=== PATIENT | female | born 1995 | race Caucasian/White ===

== ENCOUNTER → 2017-07-28 13:26 | Outpatient (CLI) | payer SELFPAY ==
[2017-07-28 13:43] LABS: Hematocrit 35.4 % (37-47); Hemoglobin 11.8 g/dl (12.0-15.0); Mean Corp Hgb Conc 33.3 g/gl (32-36); Mean Corpuscular Hgb 29.6 pg (27.0-32.0); Mean Corpuscular Volume 88.9 fL (81-99); Mean Platelet Vol. 8.9 fl (6.2-12.0); Platelet Count 257 K/mm3 (150-450); RBC Distribution Width CV 14.1 % (11.6-14.6); RBC Distribution Width SD 46.1 fl (35.1-43.9); Red Blood Count 3.98 M/mm3 (4.2-5.4); Scan Indicated on CBC? Y/N NO; White Blood Count 5.8 K/mm3 (4.4-11.0)
[2017-07-28 13:44] LABS: Glucose Challenge Gest 1H 50g 72 mg/dL (70-140)
== END ==
PROVIDERS: Visit Provider Obstetrics & Gynecology
DX: Z34.83 Encounter for supervision of other normal pregnancy, third trimester (principal)
CPT/HCPCS: 82950; 85027; 86850

== ENCOUNTER → 2017-09-22 14:37 | Outpatient (CLI) | payer SELFPAY ==
[2017-09-22 17:12] LABS: Group B Strep DNA By PCR Negative (Negative); Internal Control PASS; Probe Check PASS; Specimen Processing Control PASS
== END ==
PROVIDERS: Visit Provider Obstetrics & Gynecology
DX: Z36.85 Encounter for antenatal screening for Streptococcus B (principal)
CPT/HCPCS: 87081; 87653

== ENCOUNTER 2017-10-22 07:00 | Inpatient (IN) | payer SELFPAY ==
[2017-10-22] MEDS: Lactated Ringers 1,000 ML 50 ML IV ×2 (07:30→10:14)
[2017-10-22 07:38] VITALS: BMI 31.4
[2017-10-22 07:45] LABS: Hematocrit 36.3 % (37-47); Hemoglobin 12.3 g/dl (12.0-15.0); Mean Corp Hgb Conc 33.9 g/gl (32-36); Mean Corpuscular Hgb 29.2 pg (27.0-32.0); Mean Corpuscular Volume 86.2 fL (81-99); Mean Platelet Vol. 8.9 fl (6.2-12.0); Platelet Count 214 K/mm3 (150-450); RBC Distribution Width CV 14.8 % (11.6-14.6); RBC Distribution Width SD 46.2 fl (35.1-43.9); Red Blood Count 4.21 M/mm3 (4.2-5.4); White Blood Count 5.6 K/mm3 (4.4-11.0)
[2017-10-22 07:46] LABS: Scan Indicated on CBC? Y/N NO
[2017-10-22] MEDS: Oxytocin 30 units/NS 500 ml 30 UNITS/500 ML IV.SOLN IV (08:00)
[2017-10-22] MEDS: Ondansetron 4 MG/2 ML Vial IV (09:54)
[2017-10-22] MEDS: fentaNYL-bupivacaine (epidural) 100 ML BAG EPIDURAL (10:05)
--- NOTE | 2017-10-22 12:56 | PCM.PN.BLA ---
Progress Note induction at 40 6/7 wk EGA Comfortable w/ epidural. C/O slight itching over chest. States has sensitive skin ? due to fentanyl in epidural. (encouraged to request med for this if worsening) AVSS pitocin at 6 mIU/min EFM; 130-140s mod variability. Accels. Category I tracing UCs q 2-3 mins CX: 5/80/-2 (slaughter bulb reduced) Asynclitic position A/P: 40 6/7 wk induction adequate progress. continue labor. Anticipate
[2017-10-22] MEDS: Oxytocin 30 units/NS 500 ml 30 UNITS/500 ML IV.SOLN 334 UNITS IV (14:03)
[2017-10-22] MEDS: Oxytocin 30 units/NS 500 ml 30 UNITS/500 ML IV.SOLN 167 UNITS IV (14:33)
--- NOTE | 2017-10-22 14:43 | PCM.OB.VAG ---
Vaginal Delivery Maternal Presentation: Medically Indicated Induction 40 6/7 wk induction, postdates Method of Induction: Pitocin, Amniotomy Medical Reason for Induction: Post term Amniotic Membrane Rupture Type: Artificial Amniotic Fluid Description: Clear Final COLIN: 10/16/17 Gestational age: 40 Weeks and 6 Days [place] doctor who attended delivery (if requested by OB): Sonya Clark Date of Procedure: 10/22/17 Pre-Operative Diagnosis: 40 6/7 wk induction. Post-Operative Diagnosis: same Surgery/ Procedure Performed: Spontaneous Vaginal Delivery Type of Anesthesia: Epidural Description of Procedure: of a mckeon viable female over intact perineum. Head delivered JOSUE. OP and nares bulb suctioned on perineum. No nuchal cord. Shoulders delivered easily with delivery of posterior (left) shoulder first as L hand at chin. to maternal abdomen with spont cry. Delayed cord clamping. Cord clamped times two and cut. Routine cord blood collected for typing. PP exam; 2nd deg posterior vaginal / perineal laceration repaired to hemostatic and intact under epidural. no other lacerations noted. Placenta delivered by spont expulsion, expression. 3V cord, normal appearing and intact with trailing membranes. EBL 200 cc Pt and infant tolerated delivery well. To recovery, stable condition. Ray Jina counts correct x two. Presentation: Vertex Placental Delivery Description: Spontaneous, Expressed Placenta Disposition: [facility] Cord Vessel Description: 3 Vessels Cord Entanglement: None Estimated Blood Loss: 200 A gender: Female (1 minute): 8 (5 minute): 9 Episiotomy Description: None Laceration: Midline, Perineal Extension/lac, Vaginal Extension/lac, 2nd degree Medications given after delivery: IV Pitocin Complications: None
--- NOTE | 2017-10-22 14:56 | PCM.DCVAG ---
Discharge Diet: No Restrictions Discharge Activity: May Shower, May Take a Tub Bath May resume sexual activity in: 4-6 weeks Additional Instructions: If you experience any of the following, contact your healthcare provider. Bleeding that soaks a pad every hour for 2 hours Fever 100.4 or higher Unrelieved abdominal pain Problems urinating (including inability to urinate or burning while urinating). Visual changes Severe headache Flu-like symptoms Pain or redness in one of both of your breasts Pain, warmth, tenderness or swelling in your legs, especially the calf area Frequent nausea and vomiting Symptoms of depression or anxiety If you experience any of the following, call 911 or go to the nearest Emergency Room. Chest pain Problems breathing Seizure activity Partial or complete paralysis of a body part, slurred speech, weakness or drooping of the face, or a sudden inability to walk or hold your balance Allergies/Adverse Reactions: Allergies No Known Allergies Allergy (Verified 10/22/17 07:35) Medications to take at Discharge Vits [Prenatabs FA ] 1 tablet PO DAILY 04/14/14 Please Follow Up With: Maria Isabel Rivera MD - [phone] When: Call to make an appointment with your doctor in 6 weeks. Primary Care Physician: Dipti Jane NP-C [Primary Care Provider] - Proposed Discharge Date: 10/24/17
--- NOTE | 2017-10-22 14:58 | DCINST_ITS ---
Discharge Diet: No Restrictions Discharge Activity: May Shower, May Take a Tub Bath May resume sexual activity in: 4-6 weeks Additional Instructions: If you experience any of the following, contact your healthcare provider. * Bleeding that soaks a pad every hour for 2 hours * Fever 100.4 or higher * Unrelieved abdominal pain * Problems urinating (including inability to urinate or burning while urinating) . * Visual changes * Severe headache * Flu-like symptoms * Pain or redness in one of both of your breasts * Pain, warmth, tenderness or swelling in your legs, especially the calf area * Frequent nausea and vomiting * Symptoms of depression or anxiety If you experience any of the following, call 911 or go to the nearest Emergency Room. * Chest pain * Problems breathing * Seizure activity * Partial or complete paralysis of a body part, slurred speech, weakness or drooping of the face, or a sudden inability to walk or hold your balance Allergies/Adverse Reactions: Allergies No Known Allergies Allergy (Verified 10/22/17 07:35) Medications to take at Discharge Vits [Prenatabs FA ] 1 tablet PO DAILY 04/14/14 Please Follow Up With: Maria Isabel Rivera MD - [phone] When: Call to make an appointment with your doctor in 6 weeks. Primary Care Physician: Dipti Jane NP-C [Primary Care Provider] - Proposed Discharge Date: 10/24/17
[2017-10-22] MEDS: 0.9% Saline Lock 10 ML Syringe IV (15:33)
[2017-10-22 19:55] VITALS: BP 112/59; PULSE 72; RESP 16; TEMP 36.2; O2SAT 99
[2017-10-23 00:18] VITALS: BP 109/65; PULSE 85; RESP 16; TEMP 36.2; O2SAT 99
[2017-10-23] MEDS: Ibuprofen 600 MG Tablet PO ×3 (01:11→22:13)
[2017-10-23 03:40] VITALS: BP 108/63; PULSE 75; RESP 16; TEMP 36.4; O2SAT 98
[2017-10-23 07:44] VITALS: BP 114/70; PULSE 82; RESP 16; TEMP 36.4; O2SAT 98
[2017-10-23] MEDS: Prenatal Vits Tablet 1 TABLET PO (11:06)
--- NOTE | 2017-10-23 13:00 | PCM.PN.OB ---
Subjective: Patient without complaints. Tolerating diet well. Breast-feeding going well. Wants to stay until tomorrow. - Physical Exam Vital Signs Temp Pulse Resp BP Pulse Ox 97.6 F L 82 16 114/70 98 10/23/17 07:44 10/23/17 07:44 10/23/17 07:44 10/23/17 07:44 10/23/17 07:44 Oxygen Delivery Method Room Air Weight: 183 lb 6.793 oz Body Mass Index (BMI) 31.4 Intake and Output for Last 24 Hours 10/21/17 10/22/17 10/23/17 23:59 23:59 23:59 Intake Total 1736 / 1736 Output Total 2500 / 2500 600 / 600 Balance -764 / -764 -600 / -600 Laboratory Tests Past 24 Hrs 10/22/17 17:15 Screen NEGATIVE Baby's Blood Type A POSITIVE Baby's LUCIANA NEGATIVE Medical Necessity - Tobacco Use Smoking Status: Never smoker Assessment/Plan Doing well on day #1. Continuing present care.
[2017-10-23 13:20] VITALS: BP 114/62; PULSE 71; RESP 18; TEMP 35.6
[2017-10-23 17:00] VITALS: BP 119/75; PULSE 72; RESP 20; TEMP 35.7
[2017-10-23 22:00] VITALS: BP 112/63; PULSE 88; RESP 16; TEMP 36.4; O2SAT 96
[2017-10-24 01:30] VITALS: BP 120/71; PULSE 70; RESP 16; TEMP 35.9; O2SAT 97
[2017-10-24 08:59] VITALS: BP 125/75; PULSE 82; RESP 18; TEMP 35.8
--- NOTE | 2017-10-24 09:26 | PCM.PN.OB ---
Subjective: Patient without complaints. Breast-feeding going well. Ready to go home. - Physical Exam Vital Signs Temp Pulse Resp BP Pulse Ox 96.5 F L 82 18 125/75 H 97 10/24/17 08:59 10/24/17 08:59 10/24/17 08:59 10/24/17 08:59 10/24/17 01:30 Oxygen Delivery Method Room Air Weight: 183 lb 6.793 oz Body Mass Index (BMI) 31.4 Intake and Output for Last 24 Hours 10/22/17 10/23/17 10/24/17 23:59 23:59 23:59 Intake Total 1736 / 1736 Output Total 2500 / 2500 600 / 600 Balance -764 / -764 -600 / -600 Medical Necessity - Tobacco Use Smoking Status: Never smoker Assessment/Plan Doing well day #2. Will release to home with routine instructions.
== END 2017-10-24 09:52 | disposition home or self-care (01) | DRG 775 ==
PROVIDERS: Admitting Provider Obstetrics & Gynecology; Family Provider Nurse Practitioner Primary Care; PCP Nurse Practitioner Primary Care; Visit Provider Obstetrics & Gynecology
DX: O48.0 Post-term pregnancy (principal); Z3A.40 40 weeks gestation of pregnancy; O70.1 Second degree perineal laceration during delivery; Z37.0 Single live birth
CPT/HCPCS: 59025; 59050; 85027; 85461; 86850; 86900; 90384; 93460; 99218; J7120; A4216; G0378; J2405; J2790

== ENCOUNTER → 2019-01-25 | Outpatient (CLI) | payer SELFPAY ==
[2019-01-25 18:46] LABS: Chlamydia Trachomatis by PCR Negative (Negative); Neisserai gonorrhoeae by PCR Negative (Negative); Probe Check PASS; Sample Adequacy Control PASS; Specimen Processing Control PASS
== END | disposition home or self-care (01) ==
PROVIDERS: Visit Provider Obstetrics & Gynecology
DX: Z34.81 Encounter for supervision of other normal pregnancy, first trimester (principal); Z11.3 Encounter for screening for infections with a predominantly sexual mode of transmission
CPT/HCPCS: 87491; 87591

== ENCOUNTER → 2019-02-06 11:14 | Outpatient (CLI) | payer SELFPAY ==
[2019-02-06 13:54] LABS: Absolute Lymphocyte Count 1.43 X10^3/uL (0.83-4.51); Absolute Neutrophil Count 4.3 X10^3/uL (2.0-7.7); Basophil# 0.04 X10^3/uL; Basophil% 0.6 % (0-1); Eosinophil# 0.04 X10^3/uL; Eosinophils% 0.6 % (0-5); Hematocrit 39.4 % (37-47); Hemoglobin 13.4 g/dL (12.0-15.0); Lymphocyte # 1.43 X10^3/ul (4.0); Lymphocyte % 22.5 % (19-41); Mean Corpuscular Hgb 29.8 pg (27.0-32.0); Mean Corpuscular Volume 87.6 fL (81-99); Mean Platelet Vol. 9.3 fl (6.2-12.0); Monocyte# 0.51 X10^3/uL; NRBC Flagged by Analyzer 0 % (0-5); Neutrophil % 67.8 % (47-70); Platelet Count 293 K/mm3 (150-450); RBC Distribution Width CV 12.6 % (11.6-14.6); RBC Distribution Width SD 39.9 fl (35.1-43.9); White Blood Count 6.4 K/mm3 (4.4-11.0)
[2019-02-06 14:00] LABS: Color, Urine Yellow (Yellow); Glucose, Dipstick Normal (Normal); Ketone-Dipstick Negative (Negative); Leukocyte Esterase-Dipstick 25 /ul (Negative); Nitrite-Dipstick Negative (Negative); Occult Blood-Urine 25 /ul (Negative); Protein-Dipstick Negative (Negative); Specific Gravity, Urine 1.015 (1.002-1.030); Urine Bilirubin Dipstick Negative (Negative); Urine Clarity Sl. Cloudy (Clear); Urine Urobilinogen Normal (Normal)
[2019-02-06 14:21] LABS: Thyroid Stim Hormone (TSH) 1.76 uIU/mL (0.358-3.74)
[2019-02-06 15:07] LABS: HIV - WCH Non-Reactive (Nonreactive); Hepatitis B Surface Antigen Non-Reactive (Nonreactive); Hepatitis C Antibody Non-Reactive (Nonreactive); Rubella IgG > 500.0 IU/mL
[2019-02-10 02:39] LABS: Prenatal RPR NONREACTIVE (NONREACTIVE)
== END ==
PROVIDERS: Visit Provider Obstetrics & Gynecology
DX: Z34.81 Encounter for supervision of other normal pregnancy, first trimester (principal)
CPT/HCPCS: 36415; 81002; 84443; 85025; 86703; 86762; 86803; 87340

== ENCOUNTER → 2019-05-31 09:46 | Outpatient (CLI) | payer SELFPAY ==
[2019-05-31 10:36] LABS: Hematocrit 31.6 % (37-47); Hemoglobin 10.5 g/dL (12.0-15.0); Mean Corp Hgb Conc 33.2 g/dL (32-36); Mean Corpuscular Hgb 29.6 pg (27.0-32.0); Platelet Count 235 K/mm3 (150-450); RBC Distribution Width CV 13.8 % (11.6-14.6); RBC Distribution Width SD 45.1 fl (35.1-43.9); Red Blood Count 3.55 M/mm3 (4.2-5.4); White Blood Count 4.6 K/mm3 (4.4-11.0)
[2019-05-31 10:53] LABS: Glucose Challenge Gest 1H 50g 123 mg/dL (70-140)
== END ==
PROVIDERS: Visit Provider Obstetrics & Gynecology
DX: Z34.82 Encounter for supervision of other normal pregnancy, second trimester (principal)
CPT/HCPCS: 36415; 82950; 85027; 86850

== ENCOUNTER → 2019-08-04 | Outpatient (CLI) | payer SELFPAY | END | disposition home or self-care (01) | LOC: LABSPEC 15:19 | PROVIDERS: Visit Provider Obstetrics & Gynecology | DX: Z36.85 Encounter for antenatal screening for Streptococcus B (principal) | CPT/HCPCS: 87081 ==

== ENCOUNTER 2019-08-25 19:05 | Inpatient (IN) | payer SELFPAY ==
[2019-08-25] MEDS: 0.9% Saline Lock 10 ML Syringe IV (20:20)
[2019-08-25 20:28] VITALS: BP 113/66; PULSE 87; TEMP 36.1; O2SAT 100
[2019-08-25 20:40] VITALS: BMI 31.2
--- NOTE | 2019-08-25 21:00 | HP.PCM_ITS ---
History Date of Admission: 08/25/19 Final COLIN: 08/26/19 Final COLIN Source: US <20 weeks Gestational age: 40 Weeks and 0 Days History of this : This is a 23 year-old, G [4], P [3003], at 39 6/7 weeks gestational age admitted for induction of labor. She has no complaints. Medical History: Medical History (Last Updated 08/26/19 @ 07:[address] Rama Sharp MD) Eczema L30.9 Allergies No Known Allergies Allergy (Verified 08/25/19 21:13) Home Medications: Home Medications Vits [Prenatabs FA ] 1 tablet PO DAILY 04/14/14 Ferrous Sulfate [Iron] 325 mg PO DAILY 08/25/19 Smoking Status: Never smoker Alcohol: None Number of Fetus(es): 1 NST - FHR Rate Baby A Baseline: 140 Variability:: Moderate Accelerations:: 15 x 15 Decelerations:: None NST Reactive:: Yes FHR Category:: Category I Uterine Activity:: irritability History Past Pregnancies: Past Pregnancies Delivery Date Name GA/ Weeks Outcome Route Wt Sex Labor Length Anesthesia Delivery Location Provider FOB Labs: Mom's Labs & Results 08/25/19 08/25/19 08/25/19 20:40 20:40 20:40 WBC 5.3 RBC 4.10 L Hgb 12.3 Hct 36.7 L MCV 89.5 MCH 30.0 MCHC 33.5 RDW Std Deviation 45.1 H RDW Coeff of Gregg 14.1 Plt Count 216 MPV 8.8 Immature Gran % (Auto) 1.500 H Neut % (Auto) 59.2 Lymph % (Auto) 27.9 [place] % (Auto) 9.7 Eos % (Auto) 1.1 Baso % (Auto) 0.6 Absolute Neuts (auto) 3.1 Absolute Lymphs (auto) 1.47 Nucleated RBC % 0 Blood Type TNP A NEGATIVE Antibody Screen TNP NEGATIVE Course Did the patient receive Yes care? Labs Blood Type: A RH: NEGATIVE RPR/VDRL/Syphilis Nonreactive Rubella status Immune HbSAg Negative Date Done: 02/06/19 Chlamydia Negative Gonorrhea Negative HIV/AIDS Non-Reactive Group B Strep: Negative Current Obstetrical History Gestational Diabetes No Incompetent Cervix No Infertility No IUGR No Macrosomia No Hypertension/Pre-eclampsia No Placenta Previa/Abruption No PTL/PROM No Uterine anomaly No Oligohydramnios No Polyhydramnios No Multiple gestation No Past Medical History Asthma No Diabetes No Hypertension No Heart disease No Mitral valve prolapse No Neurologic/Seizure disorder/ No Migraines Kidney disease No Liver disease No Varicosities No Clotting disorders/Hx of DVT No Thyroid Dysfunction No Other medical diseases No Psychiatric disorders No Major trauma No Abnormal PAP smear No Sleep apnea No Mammogram in the last 2 years No Social History Marital Status: Alleged father Art Hx Smoking No Smoking Status Never smoker Expected Delivery Method: Spontaneous Vaginal Physical Exam Vitals: Vital Signs Temp Pulse BP Pulse Ox 97.4 F L 72 108/57 L 97 08/26/19 07:22 08/26/19 07:22 08/26/19 07:22 08/26/19 05:40 General: Alert, Oriented x3, Cooperative, No apparent distress HEENT: Atraumatic, Normocephalic Cardiovascular: Regular rate, Regular Rhythm, Normal S1, Normal S2 Lungs: Clear to auscultation, Normal air movement Abdomen: Soft, Non Tender, Non-Distended Extremities:: No edema Neurological: Neuro grossly intact [employer]: Normal external genitalia Estimated gestational size: Appropriate for gestational size Presentation: Cephalic Cervix Dilation (cm): 2 Station: -3 Effacement (%): 25 Assessment/Plan This is a 23 year-old, G [4], P [3], at 39 6/7 weeks gestational age, Cat I FHR -Cytotec
[2019-08-25 21:02] LABS: Absolute Lymphocyte Count 1.47 X10^3/uL (0.83-4.51); Absolute Neutrophil Count 3.1 X10^3/uL (2.0-7.7); Basophil# 0.03 X10^3/uL; Basophil% 0.6 % (0-1); Eosinophil# 0.06 X10^3/uL; Eosinophils% 1.1 % (0-5); Hematocrit 36.7 % (37-47); Hemoglobin 12.3 g/dL (12.0-15.0); Lymphocyte # 1.47 X10^3/ul (4.0); Lymphocyte % 27.9 % (19-41); Mean Corp Hgb Conc 33.5 g/dL (32-36); Mean Corpuscular Volume 89.5 fL (81-99); Mean Platelet Vol. 8.8 fl (6.2-12.0); Monocyte# 0.51 X10^3/uL; Monocyte% 9.7 % (0-10); NRBC Flagged by Analyzer 0 % (0-5); Neutrophil # 3.11 X10^3/uL (2.7-7.7); Neutrophil % 59.2 % (47-70); Platelet Count 216 K/mm3 (150-450); RBC Distribution Width CV 14.1 % (11.6-14.6); RBC Distribution Width SD 45.1 fl (35.1-43.9); White Blood Count 5.3 K/mm3 (4.4-11.0)
[2019-08-25] MEDS: miSOPROStol 25 MCG TABLET VAGINAL (21:27)
[2019-08-25 21:32] VITALS: BP 117/63; PULSE 79; TEMP 36.2; O2SAT 97
[2019-08-26] VITALS (53 sets, daily range): BP systolic 81–129; BP diastolic 44–80; PULSE 60–96; RESP 12–18; TEMP 36–36.9; O2SAT 96–99
[2019-08-26] MEDS: Lactated Ringers 1,000 ML 50 ML IV (00:23)
[2019-08-26] MEDS: Lactated Ringers 500 ML 999 ML IV ×2 (00:27→05:33)
[2019-08-26] MEDS: fentaNYL-bupivacaine (epidural) 100 ML BAG EPIDURAL ×2 (01:39→07:55)
--- NOTE | 2019-08-26 02:57 | PCM.PN.BLA ---
Progress Note [place] Progress Note Sleeping comfortably per nursing staff. AVSS GEN - NAD, AAO x 3 FHR 140, moderate variability, + accelerations, no deceleratoins TOCO 4-5/10 min SVE deferred A/P: 23yo @ 40wga, Cat I FHR -Continue in labor -Consider pitocin pending next cervical exam - status reassuring STROKE Vital Signs/Narrative: Vital Signs Temp Pulse BP Pulse Ox 08/26/19 02:43 71 98/56 L 08/26/19 02:11 68 100/55 L 08/26/19 02:07 69 97 08/26/19 02:06 96 95/52 L 08/26/19 02:02 76 98 08/26/19 02:01 82 98/56 L 08/26/19 01:57 89 100/59 L 97 08/26/19 01:52 83 96 08/26/19 01:51 81 104/60 08/26/19 01:47 79 96 08/26/19 01:45 80 102/56 L 08/26/19 01:42 85 97 08/26/19 01:41 89 100/57 L 08/26/19 01:37 87 105/55 L 98 08/26/19 01:32 96 129/80 H 08/26/19 01:30 90 98 08/26/19 01:26 74 116/70 08/26/19 01:25 97 08/26/19 01:20 84 97 08/26/19 01:16 76 114/69 08/26/19 01:15 97.9 F 97
[2019-08-26] MEDS: Oxytocin 30 units/NS 500 ml 30 UNITS/500 ML IV.SOLN IV (03:50)
[2019-08-26] MEDS: Ondansetron 4 MG/2 ML Vial IV (05:38)
--- NOTE | 2019-08-26 07:10 | PCM.PN.BLA ---
Progress Note LABOR PROGRESS NOTE Comfortable with epidural. AVSS GEN - NAD, AAO x 3 FHR 150, moderate variability, + accelerations, + variable decelerations TOCO 5/10 min SVE 4/60/-3, moderate and midposition A/P: 23yo @ 40wga, IOL, Cat II FHR -Amniotomy performed with clear fluid -Continue pitocin as tolerated by mother and fetus -Maternal and statuses reassuring STROKE Vital Signs/Narrative: Vital Signs Temp Pulse BP Pulse Ox 08/26/19 06:12 97.4 F L 64 97/51 L 08/26/19 05:41 68 105/61 08/26/19 05:40 69 113/63 97 08/26/19 05:36 66 106/62 97 08/26/19 05:35 76 81/44 L 99 08/26/19 05:09 97.4 F L 08/26/19 05:08 73 111/59 L 96 08/26/19 04:04 97.9 F 68 106/57 L 08/26/19 03:14 98.0 F 08/26/19 03:13 76 99/53 L
[2019-08-26] MEDS: Lactated Ringers 1,000 ML 200 ML IV (07:19)
[2019-08-26] MEDS: Oxytocin 30 units/NS 500 ml 30 UNITS/500 ML IV.SOLN 334 UNITS IV (08:21)
--- NOTE | 2019-08-26 08:41 | PCM.OPRPT ---
Problem List (1) 40 weeks gestation of Status: Acute Vaginal Delivery Maternal Presentation: Elective Induction Method of Induction: Pitocin, Amniotomy, Cytotec Amniotic Membrane Rupture Type: Artificial Rupture of Membrane time: 0643h 08/26/19 Amniotic Fluid Description: Clear Final COLIN: 08/26/19 Final COLIN Source: US <20 weeks Gestational age: 40 Weeks and 0 Days [place] doctor who attended delivery (if requested by OB): Poornima Solorzano Date of Procedure: 08/26/19 Pre-Operative Diagnosis: 40 wga Post-Operative Diagnosis: 40 wga, precipitous delivery Surgery/ Procedure Performed: Spontaneous Vaginal Delivery Anesthesiologist: Ryann Watkins Type of Anesthesia: Epidural Description of Procedure: Emergency ray signaled. On my arrival to room infant was delivered at perineum with depressed respiratory effort and poor tone. The infant was vigorous stimulated with improvement of tone. The cord was doubly clamped and cut. I transferred the infant the to the stabilette. The infant mouth and nares were bulb suctioned with continued stimulation. The Pediatric Hospitalist arrived, further attended to . I turned my attention to the maternal perineum. Cord blood specimen was obtained. The placenta delivered spontaneously and appeared intact on inspection. A second degree perineal laceration was repaired with 3-0 Vicryl Rapide with excellent hemostasis. Sponge and needle counts correct x 2. Presentation: Vertex Placental Delivery Description: Spontaneous Placenta Disposition: [facility] Cord Vessel Description: 3 Vessels Nuchal Cord Compression: Without compression Cord Entanglement: None Estimated Blood Loss: 500 ml Infant A gender: Male (1 minute): 5 (5 minute): 9 Episiotomy Description: None Laceration: Midline, Perineal Extension/lac, 2nd degree Medications given after delivery: IV Pitocin Complications: None
[2019-08-26] MEDS: Ibuprofen 600 MG Tablet PO ×2 (11:02→19:59)
[2019-08-26] MEDS: Prenatal Vits Tablet 1 TABLET PO (11:03)
--- NOTE | 2019-08-26 16:27 | NURSING ---
1600 Up to the bathroom with assistance, maye well. Voids 400ml clear marichuy urine. Juanita care done per patient after instructions- demonstrates understanding. States she feels as though she has emptied her bladder.
--- NOTE | 2019-08-26 23:20 | NURSING ---
Report given to Dorita MEEHAN, taking over pt and infant care.
[2019-08-27 03:49] VITALS: BP 107/63; PULSE 68
[2019-08-27 04:00] VITALS: BP 107/63; PULSE 68; RESP 16; TEMP 36.3
[2019-08-27] MEDS: Ibuprofen 600 MG Tablet PO (07:47)
[2019-08-27 07:50] VITALS: BP 113/56; PULSE 71
[2019-08-27 07:52] VITALS: BP 113/56; PULSE 71; RESP 14; TEMP 36.2
--- NOTE | 2019-08-27 09:15 | DCINST_ITS ---
Discharge Diet: No Restrictions Discharge Activity: Return to Normal Activity May resume sexual activity in: 4-6 weeks Lifting Restrictions: 10-20 lb Suture Line Care: Avoid Pulling/Pushing Cleanse incision/area with: Soap & Water Additional Instructions: If you experience any of the following, contact your healthcare provider. * Bleeding that soaks a pad every hour for 2 hours * Fever 100.4 or higher * Unrelieved incision or abdominal pain * Swelling, redness, discharge or bleeding from your incision or episiotomy site * Your incision begins to separate * Problems urinating (including inability to urinate or burning while urinating). * Visual changes * Severe headache * Flu-like symptoms * Pain or redness in one of both of your breasts * Pain, warmth, tenderness or swelling in your legs, especially the calf area * Frequent nausea and vomiting * Symptoms of depression or anxiety If you experience any of the following, call 911 or go to the nearest Emergency Room. * Chest pain * Problems breathing * Seizure activity * Partial or complete paralysis of a body part, slurred speech, weakness or drooping of the face, or a sudden inability to walk or hold your balance Allergies/Adverse Reactions: Allergies No Known Allergies Allergy (Verified 08/25/19 21:13) Medications to take at Discharge Vits [Prenatabs FA ] 1 tablet PO DAILY 04/14/14 Ferrous Sulfate [Iron] 325 mg PO DAILY 08/25/19 Please Follow Up With: Rama Sharp MD When: 6 weeks Primary Care Physician: Care Physician,No Primary [Primary Care Provider] - Test Results: Test results from this visit will be discussed in further detail at your follow- up appointment, if applicable.
--- NOTE | 2019-08-27 09:15 | PCM.DCVAG ---
Discharge Diet: No Restrictions Discharge Activity: Return to Normal Activity May resume sexual activity in: 4-6 weeks Lifting Restrictions: 10-20 lb Suture Line Care: Avoid Pulling/Pushing Cleanse incision/area with: Soap & Water Additional Instructions: If you experience any of the following, contact your healthcare provider. Bleeding that soaks a pad every hour for 2 hours Fever 100.4 or higher Unrelieved incision or abdominal pain Swelling, redness, discharge or bleeding from your incision or episiotomy site Your incision begins to separate Problems urinating (including inability to urinate or burning while urinating). Visual changes Severe headache Flu-like symptoms Pain or redness in one of both of your breasts Pain, warmth, tenderness or swelling in your legs, especially the calf area Frequent nausea and vomiting Symptoms of depression or anxiety If you experience any of the following, call 911 or go to the nearest Emergency Room. Chest pain Problems breathing Seizure activity Partial or complete paralysis of a body part, slurred speech, weakness or drooping of the face, or a sudden inability to walk or hold your balance Allergies/Adverse Reactions: Allergies No Known Allergies Allergy (Verified 08/25/19 21:13) Medications to take at Discharge Vits [Prenatabs FA ] 1 tablet PO DAILY 04/14/14 Ferrous Sulfate [Iron] 325 mg PO DAILY 08/25/19 Please Follow Up With: Rama Sharp MD When: 6 weeks Primary Care Physician: Care Physician,No Primary [Primary Care Provider] - Test Results: Test results from this visit will be discussed in further detail at your follow-up appointment, if applicable.
--- NOTE | 2019-08-27 09:50 | PCM.PN.BLA ---
Progress Note Doing well. Reports her perineum is sore, but no more than normal. She denies heavy lochia. nursed well. No complaints. STROKE Vital Signs/Narrative: Vital Signs Temp Pulse Resp BP BP 08/27/19 07:52 97.2 F L 71 14 113/56 L 08/27/19 07:50 71 113/56 L
--- NOTE | 2019-08-27 09:58 | PCM.PN.OB ---
Patient Problems: Active and Suspected Problems (Last Updated 08/26/19 @ 07:[address] Rama Sharp MD) 40 weeks gestation of (Acute) Subjective: Doing well. Reports her perineum is sore, but no more than normal. She denies heavy lochia. nursed well. No complaints. Objective: AVSS - Physical Exam Vitals/I&O's: Vital Signs Temp Pulse Resp BP Pulse Ox 97.2 F L 71 14 113/56 L 97 08/27/19 07:52 08/27/19 07:52 08/27/19 07:52 08/27/19 07:52 08/26/19 19:53 Oxygen Delivery Method Room Air Weight: 82.554 kg Body Mass Index (BMI) 31.2 Intake and Output for Last 24 Hours 08/25/19 08/26/19 08/27/19 23:59 23:59 23:59 Intake Total 2716.60 / 2716.60 Balance 2716.60 / 2716.60 General: Alert, Oriented x3, Cooperative, No apparent distress HEENT: Atraumatic, Normocephalic Lungs: Clear to auscultation, Normal air movement Cardiovascular: Regular rate, Regular Rhythm Abdomen: Soft, Non Tender, Non-Distended, - - Fundus firm and nontender, lochia scant Extremities: No edema, No Calf Tenderness Neurological: Neuro grossly intact Psych/Mental Status: Normal Affect, Appropriate, Alert and oriented to time, place, person, mood and affect Laboratory Results 08/26/19 19:50: Screen NEGATIVE, Baby's Blood Type A POSITIVE, Baby's LUCIANA NEGATIVE Current Medications Acetaminophen (Tylenol) 325 - 650 mg PO Q4H PRN PRN PRN Reason: Pain Score 1-3/10 Acetaminophen (Tylenol) 1,000 mg PO Q8H PRN PRN PRN Reason: Pain Score 1-3/10 Bisacodyl (Dulcolax) 10 mg RECTAL UD PRN PRN Reason: If no BM Dibucaine (Dibucaine) 1 applic TOPICAL TID PRN PRN; Protocol PRN Reason: Discomfort Hydrocortisone (Hytone) 1 applic TOPICAL TID PRN PRN; Protocol PRN Reason: Discomfort Ibuprofen (Motrin) 600 mg PO Q6H PRN PRN PRN Reason: Pain Score 1-3/10 Last Admin: 08/27/19 07:47 Dose: 600 mg Documented by: Methylergonovine Maleate (Methergine) 0.2 mg IM X1 PRN PRN Reason: Excess bleeding/uterine atony Ondansetron HCl (Zofran) 4 mg IV Q4H PRN PRN PRN Reason: NAUSEA Last Admin: 08/26/19 05:38 Dose: 4 mg Documented by: Multivit/Folic Acid/Iron (Prenatabs Fa) 1 tablet PO 1200 MARY Last Admin: 08/26/19 11:03 Dose: 1 tablet Documented by: Senna/Docusate Sodium (Senokot-S, Juanita-Colace) 1 - 2 tablet PO DAILY PRN PRN PRN Reason: Constipation Simethicone (Mylicon) 80 mg PO PCHS PRN PRN Reason: Indigestion/Stomach pain Sodium Chloride () 5 - 15 ml IV UD PRN PRN Reason: SALINE FLUSH Medical Necessity - Tobacco Use Smoking Status: Never smoker Assessment/Plan All Active Problems (Last Updated 08/26/19 @ 07:[address] Rama Sharp MD) 40 weeks gestation of (Acute) This is a 23 year-old, G [4], P [4 PPD#1 s/p doing well. -A neg - Rh pos - pt for Rhogam - -Routine care -d/c home later today
[2019-08-27 13:26] VITALS: BP 111/64; PULSE 83; RESP 14; TEMP 36.3
[2019-08-27 13:27] VITALS: BP 111/64; PULSE 83
--- NOTE | 2019-08-27 13:56 | NURSING ---
1350- pt and infant to private car in stable condition.
== END 2019-08-27 13:50 | disposition home or self-care (01) | DRG 807 ==
PROVIDERS: Admitting Provider Obstetrics & Gynecology; Referring Provider Obstetrics & Gynecology; Visit Provider Obstetrics & Gynecology
DX: O62.3 Precipitate labor (principal); Z37.0 Single live birth; Z3A.40 40 weeks gestation of pregnancy; O70.1 Second degree perineal laceration during delivery; O76 Abnormality in fetal heart rate and rhythm complicating labor and delivery
CPT/HCPCS: 59025; 59050; 85025; 85461; 86850; 86900; 86901; 90384; 99218; J7120; A4216; G0378; J2405; J2790

== ENCOUNTER → 2020-10-23 11:36 | Outpatient (CLI) | payer SELFPAY ==
[2020-10-23 12:15] LABS: Color, Urine Straw (Yellow); Glucose, Dipstick Normal (Normal); Ketone-Dipstick Negative (Negative); Leukocyte Esterase-Dipstick Negative /ul (Negative); Nitrite-Dipstick Negative (Negative); Occult Blood-Urine Negative /ul (Negative); Protein-Dipstick Negative (Negative); Urine Bilirubin Dipstick Negative (Negative); Urine Clarity Clear (Clear); Urine Urobilinogen Normal (Normal)
[2020-10-23 12:18] LABS: Absolute Lymphocyte Count 1.05 X10^3/uL (0.83-4.51); Absolute Neutrophil Count 3.5 X10^3/uL (2.0-7.7); Basophil# 0.03 X10^3/uL; Basophil% 0.6 % (0-1); Eosinophil# 0.04 X10^3/uL; Eosinophils% 0.8 % (0-5); Hemoglobin 12.3 g/dL (12.0-15.0); Lymphocyte # 1.05 X10^3/ul (0.83-4.51); Lymphocyte % 20.4 % (19-41); Mean Corp Hgb Conc 34.2 g/dL (32-36); Mean Corpuscular Hgb 29.2 pg (27.0-32.0); Mean Corpuscular Volume 85.5 fL (81-99); Mean Platelet Vol. 9.1 fl (6.2-12.0); Monocyte% 9.7 % (0-10); NRBC Flagged by Analyzer 0 % (0-5); Neutrophil # 3.51 X10^3/uL (2.7-7.7); Neutrophil % 68.3 % (47-70); Platelet Count 270 K/mm3 (150-450); RBC Distribution Width CV 12.7 % (11.6-14.6); RBC Distribution Width SD 39.1 fl (35.1-43.9); Red Blood Count 4.21 M/mm3 (4.2-5.4); White Blood Count 5.1 K/mm3 (4.4-11.0)
[2020-10-23 12:45] LABS: Thyroid Stim Hormone (TSH) 1.71 uIU/mL (0.358-3.74)
[2020-10-23 13:07] LABS: HIV - WCH Non-Reactive (Nonreactive); Hepatitis B Surface Antigen Non-Reactive (Nonreactive); Hepatitis C Antibody Non-Reactive (Nonreactive); Rubella IgG Reactive (Nonreactive); Syphilis Antibodies Non-reactive
[2020-10-26 03:06] LABS: Chlamydia By Nucleic Acid AMP Negative (Negative)
[2020-10-26 07:33] LABS: Gonococcus By Nucleic Acid AMP Negative (Negative)
== END ==
PROVIDERS: Visit Provider Obstetrics & Gynecology
DX: Z34.81 Encounter for supervision of other normal pregnancy, first trimester (principal); Z11.3 Encounter for screening for infections with a predominantly sexual mode of transmission
CPT/HCPCS: 36415; 81002; 84443; 85025; 86703; 86762; 86780; 86803; 87340; 87491; 87591

== ENCOUNTER → 2021-03-20 09:40 | Outpatient (CLI) | payer SELFPAY ==
[2021-03-20 12:40] LABS: Hematocrit 33.6 % (37-47); Mean Corp Hgb Conc 32.7 g/dL (32-36); Mean Corpuscular Hgb 29.9 pg (27.0-32.0); Mean Corpuscular Volume 91.3 fL (81-99); Mean Platelet Vol. 9.2 fl (6.2-12.0); Platelet Count 258 K/mm3 (150-450); RBC Distribution Width CV 14.1 % (11.6-14.6); RBC Distribution Width SD 46.6 fl (35.1-43.9); Red Blood Count 3.68 M/mm3 (4.2-5.4); White Blood Count 6.3 K/mm3 (4.4-11.0)
[2021-03-20 13:02] LABS: Glucose Challenge Gest 1H 50g 130 mg/dL (70-140)
== END ==
PROVIDERS: Visit Provider Obstetrics & Gynecology
DX: Z34.83 Encounter for supervision of other normal pregnancy, third trimester (principal)
CPT/HCPCS: 82950; 85027; 86850

== ENCOUNTER → 2021-05-15 | Outpatient (CLI) | payer SELFPAY | END | disposition home or self-care (01) | LOC: LABSPEC 16:28 | PROVIDERS: Visit Provider Student in an Organized Health Care Education/Training Program | DX: Z36.85 Encounter for antenatal screening for Streptococcus B (principal) | CPT/HCPCS: 87081 ==

== ENCOUNTER 2021-06-03 07:00 | Inpatient (IN) | payer SELFPAY ==
[2021-06-03] VITALS (27 sets, daily range): BP systolic 98–131; BP diastolic 53–85; PULSE 65–143; RESP 18; TEMP 36–36.8; O2SAT 84–98; BMI 31.4
[2021-06-03 08:43] LABS: Absolute Neutrophil Count 4.3 X10^3/uL (2.0-7.7); Basophil# 0.05 X10^3/uL; Basophil% 0.7 % (0-1); Eosinophil# 0.07 X10^3/uL; Hematocrit 33.3 % (37-47); Hemoglobin 11.3 g/dL (12.0-15.0); Lymphocyte % 20.6 % (19-41); Mean Corp Hgb Conc 33.9 g/dL (32-36); Mean Corpuscular Hgb 29.9 pg (27.0-32.0); Mean Corpuscular Volume 88.1 fL (81-99); Mean Platelet Vol. 8.6 fl (6.2-12.0); Monocyte# 0.85 X10^3/uL; Monocyte% 12.5 % (0-10); NRBC Flagged by Analyzer 0 % (0-5); Neutrophil # 4.26 X10^3/uL (2.7-7.7); Platelet Count 248 K/mm3 (150-450); RBC Distribution Width CV 14.6 % (11.6-14.6); RBC Distribution Width SD 46.8 fl (35.1-43.9); Red Blood Count 3.78 M/mm3 (4.2-5.4); White Blood Count 6.8 K/mm3 (4.4-11.0)
[2021-06-03] MEDS: Lactated Ringers 1,000 ML 200 ML IV ×2 (08:45→14:15)
[2021-06-03] MEDS: miSOPROStol 50 MCG TABLET PO (09:21)
[2021-06-03] MEDS: Oxytocin 30 units/NS 500 ml 30 UNITS/500 ML IV.SOLN IV (13:41)
[2021-06-03] MEDS: Lactated Ringers 500 ML 999 ML IV (17:20)
--- NOTE | 2021-06-03 17:30 | PCM.HP.OB ---
HPI - General General Date of Admission: 06/03/21 HPI Narrative MAYRA JACKMAN, is a 25 F who presents at 39 3/7 weeks gestation for scheduled elective induction of labor. Maternal Data Information COLIN Calculator Estimated Delivery Date Method Current WG Current Estimate 06/07/21 LMP (Certain) 39w 3d PFSH PFS Medical History (Updated 06/03/21 @ 18:[address] Rama Ewing MD) Eczema Medical History no medical history Home Medications vit,[id number] [Prenatabs FA ] 1 tab PO DAILY 04/14/14 [History Last Taken 06/02/21 21:00] herbal drugs 1 cap PO TID PRN PRN 06/03/21 [History Last Taken 06/03/21 06:00] Allergy/AdvReac Type Severity Reaction Status Date / Time No Known Allergies Allergy Verified 06/03/21 07:21 Family History (Updated 06/03/21 @ 18:[address] Rama Ewing MD) Father Diabetes Hypertension Brother Cancer osteosarcoma Family History no significant family his Surgical History (Updated 06/03/21 @ 18:[address] Rama Ewing MD) History of placement of ear tubes Surgical History no surgical history Social History Smoking Status: Never smoker History 5 Elective abortions 0 Hx Para 4 Spontaneous abortions 0 Hx # Term Pregnancies 4 Ectopic pregnancies 0 Hx # Pregnancies 0 Multiple births 0 # of living children 4 Past Pregnancies Del. Date Name GA/Weeks Outcome Route Bth Weight Infant Gen Labor Lgth Anesthesia Del Locatn Provider FOB 05/05/14 Reji 41 live - full term 8lb6oz Male 10 epidural [place] Weeman 01/28/16 Sravan 40 live - full term 7lb 11oz Male 6 epidural [place] Benekos 10/22/17 Nathalie 41 live - full term 8lb6oz Female 6 epidural [place] Benekos 08/26/19 Max 40 live - full term [id number] Male 8 epidural [place] Chrissie Ewing NST FHR Rate Baby A Baseline: 145 Variability:: Moderate Accelerations:: 15 x 15 Decelerations:: None NST Reactive:: Yes FHR Category:: Category I Uterine Activity:: 5/10 min Vital Signs Vital Signs Vital Signs: 06/03/21 08:54 06/03/21 11:29 06/03/21 11:31 Temperature Source Temporal Temporal Pulse Rate 127 H 82 Blood Pressure 111/56 L 100/55 L BP Systolic 111 100 BP Diastolic 56 55 Pulse Ox 85 06/03/21 15:44 06/03/21 17:25 06/03/21 17:31 Temperature Source Temporal Pulse Rate 71 78 Blood Pressure 108/53 L 119/69 BP Systolic 108 119 BP Diastolic 53 69 Pulse Ox 85 06/03/21 17:35 06/03/21 17:46 06/03/21 17:49 Temperature Source Pulse Rate 89 100 107 H Blood Pressure 126/83 H 123/82 H 131/85 H BP Systolic 126 123 131 BP Diastolic 83 82 85 Pulse Ox 06/03/21 17:54 06/03/21 17:59 06/03/21 18:06 Temperature Source Pulse Rate 100 96 75 Blood Pressure 127/77 H 111/63 115/60 BP Systolic 127 111 115 BP Diastolic 77 63 60 Pulse Ox Weight Weight: 83.007 kg Body Mass Index (BMI) 31.4 Physical Exam Const alert, oriented x3 and no apparent distress HEENT normocephalic Resp normal respiratory effort, normal air movement and clear to auscultation bilaterally Cardio regular rate and regular rhythm GI normal to inspection, nondistended, normoactive bowel sounds, soft to palpation, non-tender and non-distended Inspection: gravid Narrative: 3/50/-3, moderate and midposition Labs Labs Labs: Blood Type A NEGATIVE Antibody Screen NEGATIVE Hct 33.3 % (37-47) L Hgb 11.3 g/dL (12.0-15.0) L Syphilis Total Ab Non-reactive Rubella IgG Antibody Reactive (Nonreactive) Hep Bs Antigen Non-Reactive (Nonreactive) Neisseria gonorrhoeae DNA (SAYRA) Negative (Negative) HIV 1&2 Antibody Non-Reactive (Nonreactive) C.trachomatis DNA (PCR) Negative (Negative) Glucose 1 Hr 50 gm 130 mg/dL (70-140) Group B Strep DNA Negative (Negative) Rhogam given: Yes Miscellaneous Test Assessment & Plan (1) 39 weeks gestation of : PLAN: Misoprostol x 1 given, then pitocin started SVE 1-->3 Amniotomy performed with clear fluid Epidural per patient request
[2021-06-03] MEDS: fentaNYL-bupivacaine (epidural) 100 ML BAG EPIDURAL (18:26)
[2021-06-03] MEDS: Oxytocin 30 units/NS 500 ml 30 UNITS/500 ML IV.SOLN 334 UNITS IV (19:44)
--- NOTE | 2021-06-03 20:08 | EX.PCM.OBRPT ---
Assessment & Plan (1) 39 weeks gestation of : Maternal Data Information COLIN Calculator Estimated Delivery Date Method Current WG Current Estimate 06/07/21 LMP (Certain) 39w 3d Vaginal Delivery Maternal Presentation Maternal Presentation: Elective Induction Type of Induction: Pitocin, Amniotomy and Cytotec Operative Information Date of Procedure: 06/03/21 Pre-Operative Diagnosis: 39 3/7 weeks gestation Post-Operative Diagnosis: 39 3/7 weeks gestation Surgery / Procedure Performed: Spontaneous Vaginal Delivery Type of Anesthesia: Epidural Anesthesiologist: Ryann Watkins Drain: Gonzalez to straight drain Estimated Blood Loss: 350 ml Findings Description of Procedure: Patient was FD/+3 station on my arrival with Cat I FHR. She pushed to deliver a female infant through a nuchal cord. The cord was reduced and the placed on the maternal abdomen and further attended by nursery personnel. The cord was doubly clamped and cut at 4 minutes of infant life. The cord Presentation: Vertex Amniotic Membrane Rupture Type: Artificial Amniotic Fluid Description: Clear Placental Delivery Description: Spontaneous Placenta Disposition: [facility] Cord Vessel Description: 3 Vessels Cord Entanglement: Around neck x 1, tight Nuchal Cord Compression: With compression Infant A Gender: Female (1 minute): 8 (5 minute): 9 Delayed Cord Clamping: Yes Post Vaginal Delivery Medications Given After Delivery: IV Pitocin Episiotomy Description: None Laceration: Midline, Perineal Extension/lac and 2nd degree Complication Complications: None
[2021-06-04] VITALS (10 sets, daily range): BP systolic 92–116; BP diastolic 51–68; PULSE 68–201; RESP 15–16; TEMP 36.2–36.8; O2SAT 84–97
--- NOTE | 2021-06-04 06:15 | PCM.PN.OB ---
Subjective Subjective No issues overnight. is nursing well. Denies heavy lochia or painfulness. Objective Data Objective Data Vital Signs: Vital Signs Temp Pulse Resp BP Pulse Ox 97.2 F L 68 16 92/51 L 98 06/04/21 04:08 06/04/21 04:08 06/04/21 04:08 06/04/21 04:08 06/03/21 21:48 Oxygen Delivery Method Room Air Weight: 83.007 kg Body Mass Index (BMI) 31.4 Intake & Output: Intake and Output for Last 24 Hours 06/02/21 06/03/21 06/04/21 23:59 23:59 23:59 Intake Total 3055.84 / 3055.84 Output Total 400 / 400 1100 / 1100 Balance 2655.84 / 2655.84 -1100 / -1100 Lab / Micro Data Result Diagrams: 06/03/21 08:15 Labs: Laboratory Results - last 24 hr 06/03/21 08:15: WBC 6.8, RBC 3.78 L, Hgb 11.3 L, Hct 33.3 L, MCV 88.1, MCH 29.9, MCHC 33.9, RDW Std Deviation 46.8 H, RDW Coeff of Gregg 14.6, Plt Count 248, MPV 8.6, Immature Gran % (Auto) 2.200 H, Neut % (Auto) 63.0, Lymph % (Auto) 20.6, Izard % (Auto) 12.5 H, Eos % (Auto) 1.0, Baso % (Auto) 0.7, Absolute Neuts (auto) 4.3, Absolute Lymphs (auto) 1.40, Nucleated RBC % 0 06/03/21 08:15: Blood Type A NEGATIVE, Antibody Screen NEGATIVE 06/03/21 22:52: Screen NEGATIVE, Baby's Blood Type O POSITIVE, Baby's LUCIANA NEGATIVE Micro: Microbiology 06/03/21 07:55 Nasal Secretion SARS-CoV-2 Antigen (Rapid) - Final Physical Exam Const alert, oriented x3 and no apparent distress Resp normal respiratory effort and normal air movement Cardio regular rate, regular rhythm, S1 normal heart sound and S2 normal heart sound GI soft to palpation, non-tender and non-distended Narrative: fundus at umbilicus, lochia scant Uterus Palpation: uterus fundus firm and other OB fundus nontender Extremity no calf tenderness Extremity Narrative: trace b/l LE edema Neuro oriented x3 Assessment & Plan (1) (spontaneous vaginal delivery): PLAN: PPD#1 s/p doing well. Rh neg - infant Rh positive, Rhogam given Routine care
[2021-06-04] MEDS: Ibuprofen 600 MG Tablet PO (10:30)
[2021-06-05 03:00] VITALS: BP 134/90; PULSE 67; RESP 16; TEMP 36.1; O2SAT 98
[2021-06-05 03:57] VITALS: BP 134/90; PULSE 66; O2SAT 92
[2021-06-05] MEDS: Acetaminophen 500 MG Tablet 1000 MG PO (04:03)
[2021-06-05 07:22] VITALS: BP 111/62; PULSE 64
[2021-06-05 07:28] VITALS: BP 111/62; PULSE 68; RESP 16; TEMP 36.4; O2SAT 97
[2021-06-05] MEDS: Ibuprofen 600 MG Tablet PO (07:46)
--- NOTE | 2021-06-05 08:13 | PCM.DC.BLA ---
Discharge Summary Date of Admission: 06/03/21 Date of Discharge: 06/05/21 Summary: patient arrived on 06/03/2021 for term induction of labor. Subsequently delivered on 06/03/2021 via vaginal delivery. recovery and discharged home on 06/05/2021 Physical Exam Const alert, oriented x3, no apparent distress, no limitations, healthy appearing and well nourished HEENT normocephalic Eyes PERRL Neck full ROM Resp normal respiratory effort, normal air movement, no retractions and no use of accessory muscles GI GI Narrative: Soft, nontender, uterus firm and below umbilicus Extremity normal to inspection, full ROM, normal capillary refill, no joint enlargement and no clubbing, cyanosis or edema Psych mental status grossly normal, thought process normal, cooperative, affect normal and speech normal Meaningful Use Info Meaningful Use Diagnoses (Choose all that apply): None applicable Discharge Plan Admission Admit Date/Time: 06/03/21 07:00 Primary Reason for Your Visit: Induction of labor Attending Provider: Rama Johnson Primary Care Provider: Rodolfo Stubbs Instructions Additional Instructions / Restrictions: Regular diet. Okay to shower. No intercourse for 4 to 6 weeks. Call if increased bleeding, fevers, chills, chest pain, shortness of breath. Follow-up telehealth 2 weeks, follow-up 4 to 6 weeks Discharge Orders/Prescriptions Prescriptions: No Action Prenatabs FA 1 TABLET tablet 1 tab PO DAILY RF: 0 herbal drugs Capsule 1 cap PO TID PRN PRN (Reason: ) RF: 0 Referrals / Follow Up: Rodolfo Stubbs DO [Primary Care Provider] - Disposition Disposition (needs filled in before D/C Order can be placed): Home, Self Care
--- NOTE | 2021-06-05 08:16 | PCM.PN.OB ---
Subjective Subjective No overnight complaints Objective Data Objective Data Vital Signs: Vital Signs Temp Pulse Resp BP Pulse Ox 97.5 F L 68 16 111/62 97 06/05/21 07:28 06/05/21 07:28 06/05/21 07:28 06/05/21 07:28 06/05/21 07:28 Oxygen Delivery Method Room Air Weight: 183 lb Body Mass Index (BMI) 31.4 Intake & Output: Intake and Output for Last 24 Hours 06/03/21 06/04/21 06/05/21 23:59 23:59 23:59 Intake Total 3055.84 / 3055.84 Output Total 400 / 400 1100 / 1100 Balance 2655.84 / 2655.84 -1100 / -1100 Lab / Micro Data Result Diagrams: 06/03/21 08:15 Micro: Microbiology 06/03/21 07:55 Nasal Secretion SARS-CoV-2 Antigen (Rapid) - Final Physical Exam Const alert, oriented x3, no apparent distress, average body habitus, healthy appearing and well nourished HEENT normocephalic and moist oral mucous membranes Head and Scalp: atraumatic Face and Sinus: normal facial exam Eyes PERRL Neck full ROM Resp normal respiratory effort, no retractions and no use of accessory muscles GI GI Narrative: Soft, nontender, uterus firm and below umbilicus Extremity normal to inspection, full ROM and no clubbing, cyanosis or edema Psych mental status grossly normal, affect normal, speech normal and activity/motor behavior normal Assessment & Plan (1) (spontaneous vaginal delivery): PLAN: day 2. Breast-feeding. Pain well controlled. Okay to discharge home today
[2021-06-05 09:34] VITALS: BP 111/62; PULSE 68; RESP 16; TEMP 36.4; O2SAT 97
== END 2021-06-05 10:00 | disposition home or self-care (01) | DRG 807 ==
PROVIDERS: Admitting Provider Obstetrics & Gynecology; PCP Preventive Medicine Occupational Medicine; Referring Provider Obstetrics & Gynecology; Visit Provider Obstetrics & Gynecology
DX: O70.1 Second degree perineal laceration during delivery (principal); Z37.0 Single live birth; O69.2XX0 Labor and delivery complicated by other cord entanglement, with compression, not applicable or unspecified; Z3A.39 39 weeks gestation of pregnancy
CPT/HCPCS: 59025; 59050; 85025; 85461; 86850; 86900; 86901; 87426; 90384; 99218; J7120; G0378; J2790

== ENCOUNTER 2021-07-16 13:55 | Outpatient (CLI) | payer SELFPAY ==
[2021-07-21 20:24] LABS: HPV Reflexed? NOT INDICATED
== END 2021-07-16 23:59 | disposition home or self-care (01) ==
LOC: LABSPEC 13:56
PROVIDERS: PCP Preventive Medicine Occupational Medicine; Visit Provider Obstetrics & Gynecology
DX: Z12.4 Encounter for screening for malignant neoplasm of cervix (principal)
CPT/HCPCS: 88175; G0145

== ENCOUNTER 2023-03-31 07:05 | Inpatient (IN) | payer SELFPAY ==
[2023-03-31] VITALS (69 sets, daily range): BP systolic 83–125; BP diastolic 48–70; PULSE 71–103; RESP 16; TEMP 36.1–37.4; O2SAT 94–99; BMI 32.8
[2023-03-31] MEDS: Lactated Ringers 1,000 ML 50 ML IV (07:50)
[2023-03-31 08:19] LABS: Bedside Glucose 122 mg/dL (74-106)
[2023-03-31] MEDS: 0.9% Normal Saline Single 100 ML IV.SOLN. INTRA-UTER (08:22)
[2023-03-31 08:24] LABS: Absolute Lymphocyte Count 1.12 X10^3/uL (0.83-4.51); Basophil# 0.06 X10^3/uL; Eosinophil# 0.06 X10^3/uL; Hematocrit 36.3 % (37-47); Hemoglobin 11.8 g/dL (12.0-15.0); Lymphocyte # 1.12 X10^3/ul (0.83-4.51); Lymphocyte % 18.8 % (19-41); Mean Corp Hgb Conc 32.5 g/dL (32-36); Mean Corpuscular Volume 89.2 fL (81-99); Mean Platelet Vol. 8.9 fl (6.2-12.0); Monocyte# 0.58 X10^3/uL; Monocyte% 9.7 % (0-10); NRBC Flagged by Analyzer 0 % (0-5); Neutrophil # 3.99 X10^3/uL (2.7-7.7); Platelet Count 239 K/mm3 (150-450); RBC Distribution Width CV 14.6 % (11.6-14.6); Red Blood Count 4.07 M/mm3 (4.2-5.4)
--- NOTE | 2023-03-31 08:29 | PCM.HP.OB ---
HPI - General General Date of Admission: 03/31/23 HPI Narrative MAYRA JACKMAN, is a 27 F at 38 weeks who presents for scheduled induction of labor for uncontrolled GDM A2. complicated by polyhydramnios and RH negative blood type. GBS negative Maternal Data Information COLIN Calculator Estimated Delivery Date Method Current WG Current Estimate 04/14/23 Manual 38w 0d PFSH PFSH Medical History (Updated 03/31/23 @ 08:32 by Nimco Boyer CNM) Eczema Gestational diabetes Hemorrhoids Polyhydramnios Superficial varicosities Home Medications vits,calcium no.78-iron fumarate-folic acid 29 mg-1 mg tablet (Prenatabs FA) 1 tab PO DAILY vitamin 04/14/14 [History Last Taken 06/02/21 21:00] Allergy/AdvReac Type Severity Reaction Status Date / Time No Known Allergies Allergy Verified 03/31/23 07:14 Family History Father Diabetes Hypertension Brother Cancer osteosarcoma Surgical History History of placement of ear tubes Social History Smoking Status: Never smoker History 5 Elective abortions 0 Hx Para 5 Spontaneous abortions 0 Hx # Term Pregnancies 4 Ectopic pregnancies 0 Hx # Pregnancies 0 Multiple births 0 # of living children 4 Past Pregnancies Del. Date Name GA/Weeks Outcome Route Bth Weight Gen Labor Lgth Anesthesia Del Locatn Provider FOB 05/05/14 Reji 41 live - full term 8lb6oz Male 10 epidural [place] [facility] 01/28/16 Sravan 40 live - full term 7lb 11oz Male 6 epidural [place] Benekos 10/22/17 Nathalie 41 live - full term 8lb6oz Female 6 epidural [place] [facility] 08/26/19 Max 40 live - full term [id number] Male 8 epidural [place] Chrissie Ewing ROS Eyes Eyes: Denies blurry vision, change in vision or spots in vision ENT HEENT: Denies dizziness or headache(s) Cardiovascular Cardiovascular: Denies abdominal pain, chest pain or dyspnea Respiratory/Chest Respiratory/Chest: Denies cough, dyspnea, shortness of breath at rest or shortness of breath with exertion Gastrointestinal Gastrointestinal: Denies abdominal pain, diarrhea or vomiting Genitourinary Genitourinary: Denies change in urinary stream, difficulty urinating or dysuria Musculoskeletal Musculoskeletal: Reports none Integumentary Integumentary: Denies rash Neurologic Neurologic: Denies dizziness, headache(s), memory loss or weakness Psychiatric Psychiatric: Reports none Vital Signs Vital Signs Vital Signs: 03/31/23 07:42 03/31/23 07:42 03/31/23 07:42 Pulse Rate 98 Blood Pressure 108/63 BP Systolic 108 BP Diastolic 63 Pulse Ox 96 03/31/23 08:26 03/31/23 08:26 Pulse Rate 92 Blood Pressure BP Systolic BP Diastolic Pulse Ox 94 Weight Weight: 191 lb 2.252 oz Body Mass Index (BMI) 32.8 Physical Exam Const alert, oriented x3 and no apparent distress General Appearance: cooperative Orientation / Consciousness: awake Exam Limitations: no limitations HEENT normocephalic Head and Scalp: normal to inspection Eyes General Eye: normal appearance of both eyes Neck full ROM and no lymphadenopathy Lymph Lymphatic: no lymphadenopathy noted Chest inspection of chest normal Resp normal respiratory effort, normal air movement and clear to auscultation bilaterally Effort and Inspection: able to speak in complete sentences and symmetric chest movement Cardio regular rate and regular rhythm GI normal to inspection, nondistended, normoactive bowel sounds Manual OB Exam: presentation cephalic Amniotic Fluid: clear amniotic fluid Back/Spine normal ROM Extremity full ROM and no calf tenderness Skin no rashes or lesions noted General Skin Exam: no breakdown Neuro oriented x3 and CN's II-XII intact bilaterally Psych mental status grossly normal and thought process normal Labs Labs Labs: Blood Type A NEGATIVE Antibody Screen NEGATIVE Hct 36.3 % (37-47) L Hgb 11.8 g/dL (12.0-15.0) L Syphilis Total Ab Non-reactive Rubella IgG Antibody Reactive (Nonreactive) Hep Bs Antigen Non-Reactive (Nonreactive) Hepatitis C Antibody Non-Reactive (Nonreactive) Hepatitis C Ab (EIA) <0.1 s/co ratio (0.0-0.9) Chlamydia DNA (SAYRA) Negative (Negative) N.gonorrhoeae DNA (SAYRA) Negative (Negative) HIV 1&2 Antibody Non-Reactive (Nonreactive) Glucose 1 Hr 50 gm 130 mg/dL (70-140) Group B Strep DNA Negative (Negative) Rhogam given: Yes Miscellaneous Test GBS negative Assessment & Plan (1) Grand multipara: (2) GDM, class A2: (3) Polyhydramnios affecting : (4) Encounter for induction of labor: PLAN: Plan Admit to labor and delivery GDM protocol started Routine labs GBS negative CE 1.5/60/-2- AROM for copious amount of clear fluid Gonzalez bulb placed without difficulty and balloon filled with 40 cc N/S Start Pitocin 2 mu/ min and increase per policy Dr. Isbell assuming management of patient
[2023-03-31 09:07] LABS: Syphilis Antibodies Non-reactive
[2023-03-31] MEDS: Oxytocin 15 Units/NS 250ml 15 UNITS/250 ML IV.SOLN 2 UNITS IV (09:48)
[2023-03-31 10:20] LABS: Bedside Glucose 76 mg/dL (74-106)
[2023-03-31 11:25] LABS: Bedside Glucose 84 mg/dL (74-106)
[2023-03-31 11:26] LABS: Bedside Glucose 86 mg/dL (74-106)
[2023-03-31] MEDS: LACTATED RINGERS 500 ML 999 ML IV ×3 (11:55→15:08)
[2023-03-31 12:34] LABS: Bedside Glucose 72 mg/dL (74-106)
[2023-03-31] MEDS: fentaNYL-bupivacaine (epidural) 100 ML BAG EPIDURAL (12:54)
[2023-03-31 13:38] LABS: Bedside Glucose 89 mg/dL (74-106)
[2023-03-31 14:44] LABS: Bedside Glucose 68 mg/dL (74-106)
[2023-03-31] MEDS: Lactated Ringers 1,000 ML 200 ML IV (15:40)
[2023-03-31 16:09] LABS: Bedside Glucose 70 mg/dL (74-106)
[2023-03-31 16:09] LABS: Bedside Glucose 86 mg/dL (74-106)
--- NOTE | 2023-03-31 16:51 | EX.PCM.OBRPT ---
Assessment & Plan (1) Grand multipara: (2) GDM, class A2: (3) (spontaneous vaginal delivery): (4) Polyhydramnios affecting : Maternal Data Information COLIN Calculator Estimated Delivery Date Method Current WG Current Estimate 04/14/23 Manual 38w 0d Final COLIN: 04/14/23 Gestational age: 38 Vaginal Delivery Maternal Presentation Maternal Presentation: Medically Indicated Induction Type of Induction: Pitocin, Gonzalez Bulb and Amniotomy Medical Reason for Induction: - (gest DM, polyhydramnios) Operative Information Date of Procedure: 03/31/23 Pre-Operative Diagnosis: labor Post-Operative Diagnosis: same Surgery / Procedure Performed: Spontaneous Vaginal Delivery Type of Anesthesia: Epidural Drain: - (none) Estimated Blood Loss: 200 Time of Delivery: 16:27 Findings Description of Procedure: A vigorous male was delivered JOSUE over a second-degree perineal laceration. The nuchal cord was not able to easily be reduced, therefore the anterior shoulder was delivered through it and the remainder the delivered easily. The remainder the was delivered with maternal pushing and gentle traction only in less than 15 seconds. The Pitocin infusion was initiated for active management of the third stage. The cord was clamped and cut after cord pulsations ceased. The was attended to by the waiting nursing staff. The placenta was delivered spontaneously and intact. The cervix and vagina were intact. The second-degree perineal laceration was repaired with 3-0 Vicryl suture in a running standard fashion. Sponge and needle counts were correct. A vaginal sweep was completed by me. Presentation: JOSUE Amniotic Membrane Rupture Type: Artificial Amniotic Fluid Description: Clear Placental Delivery Description: Spontaneous Placenta Disposition: [facility] Cord Vessel Description: 3 Vessels Cord Entanglement: Around neck x 1, tight Nuchal Cord Compression: Without compression A Gender: Male (1 minute): 8 (5 minute): 9 Delayed Cord Clamping: Yes Post Vaginal Delivery Medications Given After Delivery: IV Pitocin Episiotomy Description: 2nd degree Laceration: None Complication Complications: None
[2023-03-31] MEDS: Oxytocin 15 Units/NS 250ml 15 UNITS/250 ML IV.SOLN 83 UNITS IV (16:59)
[2023-03-31 17:38] LABS: Bedside Glucose 78 mg/dL (74-106)
[2023-03-31] MEDS: Acetaminophen 500 MG Tablet 1000 MG PO (18:51)
[2023-03-31] MEDS: 0.9% Saline Lock 10 ML Syringe IV (19:57)
[2023-04-01 00:38] VITALS: BP 105/50; PULSE 67; RESP 16; TEMP 36.6; O2SAT 96
[2023-04-01 04:24] VITALS: BP 102/57; PULSE 87; RESP 18; TEMP 36.9; O2SAT 96
[2023-04-01 07:42] LABS: Bedside Glucose 90 mg/dL (74-106)
[2023-04-01 08:00] VITALS: BP 105/65; PULSE 64; RESP 18; TEMP 37.1; O2SAT 96
[2023-04-01] MEDS: Ibuprofen 600 MG Tablet PO (08:53)
--- NOTE | 2023-04-01 09:49 | PCM.PROGNOTE ---
Subjective Subjective patient seen at bedside, doing well. Patient reports good pain control. lochia mild. Objective Data Objective Data Vital Signs: Vital Signs Temp Pulse Resp BP Pulse Ox O2 Del Method 98.7 F 64 18 105/65 96 Room Air 04/01/23 08:00 04/01/23 08:00 04/01/23 08:00 04/01/23 08:00 04/01/23 08:00 04/01/23 08:00 Oxygen Delivery Method Room Air Weight: 86.7 kg Body Mass Index (BMI) 32.8 Intake & Output: Intake and Output for Last 24 Hours 03/30/23 03/31/23 04/01/23 23:59 23:59 23:59 Intake Total 3366.40 / 3366.40 Output Total 2200 / 2200 Balance 1166.40 / 1166.40 Lab / Micro Data 03/31/23 07:50 Labs: Laboratory Results - last 24 hr 03/31/23 08:58: POC Glucose 86 03/31/23 09:51: POC Glucose 76 03/31/23 11:04: POC Glucose 84 03/31/23 12:08: POC Glucose 72 L 03/31/23 13:14: POC Glucose 89 03/31/23 14:20: POC Glucose 68 L 03/31/23 14:37: POC Glucose 70 L 03/31/23 15:38: POC Glucose 86 03/31/23 16:57: POC Glucose 78 03/31/23 19:00: Screen NEGATIVE, Baby's Blood Type A POSITIVE, Baby's LUCIANA NEGATIVE 04/01/23 06:15: POC Glucose 90 Physical Exam Const alert and oriented x3 General Appearance: cooperative HEENT normocephalic Neck General: normal visual inspection GI soft to palpation and non-distended GI Narrative: Fundus firm Extremity normal to inspection and no calf tenderness Skin no rashes or lesions noted Neuro oriented x3 and CN's II-XII intact bilaterally Psych mental status grossly normal Assessment & Plan Assessment/Plan (1) GDM, class A2: (2) Grand multipara: (3) (spontaneous vaginal delivery): (4) Hemorrhoids: PLAN: Plan PPD# 1 , Doing well Routine care pain mgmt ambulation baby in SCN- will plan for dc home tomorrow
[2023-04-01 12:33] VITALS: BP 104/59; PULSE 77; RESP 18; TEMP 36.9
[2023-04-01 17:23] VITALS: BP 100/67; PULSE 78; RESP 18; TEMP 36.8; O2SAT 99
[2023-04-01 20:25] VITALS: BP 111/57; PULSE 78; RESP 16; TEMP 36.7; O2SAT 96
[2023-04-02 02:45] VITALS: BP 102/52; PULSE 70; RESP 16; TEMP 36.7
[2023-04-02 08:32] VITALS: BP 108/71; PULSE 78; RESP 16; TEMP 36.9
[2023-04-02 14:00] VITALS: BP 108/77; PULSE 82; RESP 16; TEMP 36.6; O2SAT 98
--- NOTE | 2023-04-02 15:31 | CASEMGMT ---
Social Work Assessment Labor and Delivery Unit Patient Address: [address] [place] [address]. [place] [id number] Phone number: [phone] Date of Referral: / Time of Referral:? 2030 Referred By:Dr. Jill Clemons Date of Intervention: ??04/02/23 Time of Intervention:? 1500 Reason for Referral:? SCN Sw completed chart review and acknowledges social work consult due to being admitted to [facility]. Sw presented to bedside and met with mother of baby (LONA Ramírez). Sw explained reason for sw involvement and completed psychosocail assessment. History obtained from: medical records and mother of baby (MOB)??? Household composition: Currently residing in the home is MOB, father of baby (NIKITA- Art), their 4 older children (Reij: : 05/05/14, Sravan: : 01/28/16, Ntahalie: : 10/22/17, and Max: : 08/26/19) and now baby. MOB states that their housing is safe and secure, no concerns at this time. Patient's parent/guardian status:? MOB states that parents have been together for 10 years, they met at [employer]. No concerns regarding domestic violence or intimate partner violence at this time. ? Medical History: MATHIEU is 27 year old female who is 5, para 4- now 5 after labor and delivery of baby. MATHIEU received routine care during with [facility]. MATHIEU delivered baby via vaginal delivery at 38 weeks gestation on 03/31/23. Baby boy, named, Bakari, was born weighing 7lb 3oz and his apgars were 8 and 9 at one and five minutes of life respectfully. MATHIEU states that she is breast feeding and it is going well. Baby will be followed by Dr. Tabares for pediatrics. Baby required transfer to [facility] due to respiratory distress. Educational Status:?Both parents graduated high school, no college education for either parent. No concerns regarding reading, learning or comprehension. Financial Status: NIKITA is gainfully employed outside of the home, he works as a bush and vine farmer fruit crops. MATHIEU is a stay at home mom. Supplies: MATHIEU states that she has everything she needs for baby including: car seat, safe sleep space, clothes, diapers and wipes. MOB states that she does not have a breast pump. Sw encouraged MOB to touch base with to discuss obtaining a breast pump prior to going home. Childcare/Caregiver(s):?MATHIEU will be primary caregiver to baby, along with FOB when he is not at work. MOB states that she also has father's family to help provide childcare while she is at the hospital and FOB is working. Transportation:?Both parents have their drivers license and reliable means of transportation. No transportation barriers at this time. ? Programs/Agencies Involved: ??MOB denies linkage to community resources at this time. Sw to provide list of community resources to MOB along with brochure for [employer] should MOB be receptive to getting connected to at time of discharge. ? Children Services/Legal Issues:??No history of children services involvement. No issues or concerns warranting referral at this time. ? Behavioral Health Issues: ??Mental Health History:?MATHIEU denies mental health history for herself and FOB. ??MATHIEU stated that she did experience some baby blues or depression after the delivery of her first son. MOB states that during that time she was more tearful and overwhelmed. MOB states that she would cry a lot, and just when she considered getting connected to someone to help her the symptoms resolved. Substance Use History:?MATHIEU denies substance use prior to and during .? Family History:?MATHIUE states that NIKITA has a grandpa and some cousins who have problems with alcohol. MOB denies mental health history for both sides of family. ? Drug Screens: ??No urine screens observed in chart review. Family/Social Stressors:? MATHIEU states that she does not have any specific stressors at this time. Sw discussed any concerns or worries due to baby requiring admission to [facility]. MATHIEU stated that she has not ever had another baby who needed an admission to [facility] and so this journey has been different than any other journey she has had. Support Systems: MOB states that NIKITA family is very supportive and is helping with the other children while she is at the hospital and FOB is at work. MOB states that her family resides outside of [place], but they are on their way to visit. Depression/Shaken Baby/Safe Sleeping:? Sw educated MOB on signs and symptoms of baby blues and depression/ anxiety. MOB expressed understanding. Sw educated MOB on shaken baby prevention and the ABCs of safe sleep. MOB expressed understanding. ASSESSMENT:?MOB admitted following labor and delivery of . Baby at this time admitted to [facility] due to respiratory distress. MOB talkative and engaged in psychosocial assessment with sw. MOB with natural supports in place and has obtained all necessary baby items. MOB receptive to sw involvement and support. PLAN:? MOB to be discharged from labor and delivery when medically ready. Baby will be discharged from special care nursery when medical goals met and medically ready for discharge. ?No other services requested or indicated. Handy Mera, SHIPFITTER, MANAGER OF COMMUNITY RELATIONS
--- NOTE | 2023-04-02 18:51 | DS.PCM_ITS ---
Providers Date of Admission: 03/31/23 Primary Care Physician: Dr. Rodolfo Stubbs DO Reason For Visit: VAGINAL DELIVERY Diagnosis Discharge Diagnosis (1) GDM, class A2: Status: Acute Code(s): O24.419 - Gestational diabetes mellitus in , unspecified control (2) Grand multipara: Status: Acute Code(s): Z64.1 - Problems related to multiparity (3) (spontaneous vaginal delivery): Status: Acute Code(s): O80 - Encounter for full-term uncomplicated delivery (4) Hemorrhoids: Status: Acute Code(s): K64.9 - Unspecified hemorrhoids Medications at Discharge Home Medications vits,calcium no.78-iron fumarate-folic acid 29 mg-1 mg tablet (Prena tabs FA) 1 tab PO DAILY vitamin 04/14/14 Hospital Course Operations None Procedures None Summary of Care Provided Minutes Spent on Discharge: 10 Hospital Course: Patient had . Hospital course was uneventful. Physical Exam Const alert and no apparent distress General Appearance: cooperative and comfortable Exam Limitations: no limitations HEENT normocephalic Eyes General Eye: normal appearance of both eyes Neck full ROM General: normal visual inspection Chest Chest: symmetrical chest wall rise Resp normal respiratory effort and normal air movement Effort and Inspection: symmetric chest movement Auscultation: clear to auscultation bilaterally Cardio regular rate and regular rhythm GI normal to inspection, nondistended, normoactive bowel sounds Back/Spine normal ROM Extremity full ROM and no calf tenderness General Extremity: normal exam except as noted Skin no rashes or lesions noted Neuro CN's II-XII intact bilaterally Psych mental status grossly normal Weight / BMI Weight Weight: 191 lb 2.252 oz Body Mass Index (BMI) 32.8 ABG / Lab / Microbiology Data 03/31/23 07:50 D/C Instructions Discharge Diet: No restrictions May resume sexual activity in: 6-8 weeks Weight Bearing Status: Weight bearing as tolerated Call your doctor if you observe: Fever of 101 or Higher, Inability to urinate, Using more than 1 pad per hour, Shortness of breath, Chest pain, Calf discomfort and Uncontrolled pain Please Follow Up With: Nimco Boyer CNM When: 2 weeks virtual visit/ 6 weeks in office Meaningful Use Info Meaningful Use Diagnoses (Choose all that apply): None applicable Discharge Plan Admission Admit Date/Time: 03/31/23 07:05 Primary Reason for Your Visit: Labor and Delivery Attending Provider: Kalee Isbell Primary Care Provider: Rodolfo Stubbs Discharge Orders/Prescriptions Prescriptions: Continued Prenatabs FA 1 TABLET tablet 1 tab PO DAILY Discontinued Humulin N NPH U-100 Insulin 100 unit/mL suspension 16 unit subcut QPM Referrals / Follow Up: Rodolfo Stubbs DO [Primary Care Provider] - Disposition Disposition (needs filled in before D/C Order can be placed): Home, Self Care
== END 2023-04-02 19:07 | disposition home or self-care (01) | DRG 807 ==
PROVIDERS: Obstetrics & Gynecology; Admitting Provider Advanced Practice Midwife; PCP Preventive Medicine Occupational Medicine; Referring Provider Obstetrics & Gynecology; Visit Provider Obstetrics & Gynecology
DX: O24.429 Gestational diabetes mellitus in childbirth, unspecified control (principal); Z37.0 Single live birth; O40.3XX0 Polyhydramnios, third trimester, not applicable or unspecified; O70.1 Second degree perineal laceration during delivery; Z3A.38 38 weeks gestation of pregnancy; Z64.1 Problems related to multiparity
CPT/HCPCS: 59025; 59050; 82962; 85025; 85461; 86780; 86850; 86900; 86901; 99221; J7120; A4216; G0378; J2790